=== PATIENT | female | born 1950 | race Caucasian/White ===

== ENCOUNTER 2018-06-29 13:25 | Emergency (ER) | payer MEDICARE ==
[~2018-06-29] VITALS: Ht 162.6 cm; Wt 69.0 kg
[2018-06-29 14:18] LABS: HEMATOCRIT 44.3 % (37.0-47.0); IMMATURE GRANULOCYTES 0.4 % (0.0-5.0); MEAN CELL VOLUME 90.4 fL CALC (80.0-100.0); MEAN CORPUSCULAR HGB 30.6 pG CALC (26.0-32.0); MEAN CORPUSCULAR HGB CONC 33.9 g/L CALC (32.0-36.0); NEUT# 3.13 thou/uL (2.00-7.15); RED BLOOD COUNT 4.9 mill/uL (4.20-5.60); RED CELL DISTRI WIDTH 12.5 % (11.5-15.5)
[2018-06-29] MEDS ORDERED: LISINOPRIL10 MG PO (14:31)
[2018-06-29] MEDS ORDERED: ASPIRIN81 MG PO (14:31)
[2018-06-29 14:32] LABS: ALBUMIN 4.3 g/dL (3.2-5.0); ALKALINE PHOSPHATASE 66 u/l (38-126); ANION GAP 14 (6-22 (CALC)); BILIRUBIN, TOTAL 0.5 mg/dL (0.0-1.4); BUN 18 mg/dL (8-23); BUN/CREATININE RATIO 28 (12-20 (CALC)); CARBON DIOXIDE 23 mmol/l (22-30); CHLORIDE 110 mmol/l (95-108); CREATININE 0.6 mg/dL (0.5-1.0); GFR > 60 ML/MIN (>=60 (CALC)); GFR FOR AFR.AMER. > 60 ML/MIN (>=60 (CALC)); POTASSIUM 4.5 mmol/l (3.5-5.1); SGOT/AST 25 u/l (9-36); SODIUM 143 mmol/l (137-146); TOTAL PROTEIN 7.2 g/dL (6.3-8.2)
[2018-06-29] MEDS ORDERED: ANASTROZOLE1 MG PO (14:32)
[2018-06-29 14:44] LABS: MYOGLOBIN 23 ng/mL (0 - 62)
[2018-06-29] MEDS ORDERED: TORADOL PO (15:23)
[2018-06-29 15:55] VITALS: BP 110/79
== END 2018-06-29 16:05 | disposition home or self-care (01) ==
LOC: ED 13:25
PROVIDERS: Family Medicine
DX: M94.0 Chondrocostal junction syndrome [Tietze] (principal); I10 Essential (primary) hypertension; Z85.3 Personal history of malignant neoplasm of breast; Z92.3 Personal history of irradiation; R07.9 Chest pain, unspecified